=== PATIENT | female | born 1985 | race Caucasian/White ===

== ENCOUNTER 2016-11-12 01:46 | Emergency (ER) | payer SELFPAY ==
[~2016-11-12 01:46] MED LIST: ALBUTEROL17 GM NEB; BIRTH CONTROL PILL PO
== END 2016-11-12 03:10 | disposition home or self-care (01) ==
LOC: CED 01:46
DX: G40.909 Epilepsy, unspecified, not intractable, without status epilepticus (principal); Z88.0 Allergy status to penicillin; Z79.82 Long term (current) use of aspirin
CPT/HCPCS: 99284